=== PATIENT | female | born 1950 | race Caucasian/White ===

== ENCOUNTER → 2017-08-05 | Outpatient (CLI) | payer MEDICARE ==
--- NOTE | 2017-08-05 15:34 | RAD ---
Right knee, 3 views, 08/05/2017: History: Recent falls, pain The bony structures are demineralized. No fracture or dislocation is identified. There is mild degenerative change at the patellofemoral articulation. No significant joint effusion is seen. IMPRESSION: 1. Demineralization. 2. No acute bony abnormality is detected.
== END | disposition home or self-care (01) ==
LOC: PMG 14:16
PROVIDERS: ATTEND Orthopaedic Surgery Sports Medicine
DX: M17.11 Unilateral primary osteoarthritis, right knee (principal); R29.6 Repeated falls
CPT/HCPCS: 73562